=== PATIENT | female | born 1985 | race Caucasian/White ===

== ENCOUNTER 2016-11-28 04:52 | Inpatient (IN) | payer OTHER ==
[2016-11-28] MEDS ORDERED: OXYTOCIN 20 UNITS in RINGER'S SOLUTION,LACTATED 1,000 ML IV ONE (04:55)
[2016-11-28] MEDS ORDERED: ceFAZolin SODIUM/DEXTROSE,ISO 2 GM/50 ML BAG IV ONE (04:55)
[2016-11-28] MEDS ORDERED: RINGER'S SOLUTION,LACTATED 1,000 ML IV PRN (04:55)
[2016-11-28] MEDS: RINGER'S SOLUTION,LACTATED 1,000 ML IV PRN ×2 (06:22→10:05)
[2016-11-28] MEDS ORDERED: RINGER'S SOLUTION,LACTATED 1,000 ML IV ONE ×2 (07:50→09:25)
[2016-11-28] MEDS ORDERED: BISACODYL 10 MG SUPP.RECT RC PRN (09:29)
[2016-11-28] MEDS ORDERED: SENNOSIDES 8.6 MG TABLET PO PRN (09:29)
[2016-11-28] MEDS ORDERED: oxyCODONE HCL/ACETAMINOPHEN 1 TAB TABLET PO PRN (09:29)
[2016-11-28] MEDS ORDERED: ONDANSETRON HCL/PF 2 MG/ML VIAL IV PRN (09:29)
[2016-11-28] MEDS ORDERED: SIMETHICONE 80 MG TAB.CHEW PO PRN (09:29)
--- NOTE | 2016-11-28 09:36 | OR ---
Operative Report - Dictated Report Narrative: Operative report: 11/28/2016 Preoperative diagnosis: Prior , 39.0 weeks, status post right salpingectomy with and left salpingectomy of previous ectopic , desires permanent sterilization Postoperative diagnosis: Same Procedure: Repeat low-transverse section, left salpingectomy, cauterization of bilateral fallopian tube stumps on the uterus Surgeon: Kelly Palma D.O. Plant Worker: Or staff Anesthesia: Spinal IV fluids: 600 Milliliters Urine output: 50 Milliliters EBL: 200 Milliliters Findings: Normal appearing uterus, small omental adhesion to the peritoneum on the right side, remnant of the left fallopian tube, absent right fallopian tube , normal appearing ovaries, female infant in cephalic presentation, Apgars of 8 and 9, weight of 6 lbs. 5 oz. Drains: Mata catheter to gravity Pathology: Left fallopian tube Complications: None Condition: Stable The patient was taken to the operating room with IV fluids running and Mata catheter in place. She was placed in the dorsal supine position with a leftward tilt. She was prepped and draped in the normal sterile fashion. A Pfannenstiel skin incision was made with the scalpel approximately 2 cm above the pubic symphysis along the prior incision. The subcutaneous tissue was dissected down to the fascia. The fascia was incised in the midline and extended laterally. The superior aspect of the fascia was grasped with Elvia clamps and the rectus muscles were dissected off the fascia using Gates scissors and blunt dissection. In a similar fashion, the inferior aspect of the fascia was grasped and the rectus muscles dissected off. The peritoneum was then entered and extended with good visualization of the bowel and bladder. There was a small piece of omentum adherent to the peritoneal on the right anterior pelvis and this was cauterized and released. The uterine incision was made in a low-transverse fashion using the scalpel. It was extended laterally with the bandage scissors due to very thin lower uterine segment well applied to the anterior uterus. The was found to be cephalic. The infant was then delivered atraumatically. The cord was clamped and cut. The was handed off to the waiting framing mill operator helper. Cord blood was then collected. The placenta was then delivered spontaneously. The uterus was cleared of all clots and debris. Uterine incision was reapproximated using 0 Vicryl in a running fashion. A second layer of 0 Vicryl was used to imbricate the uterine incision. Hemostasis was obtained. Attention was then turned to the area of the fallopian tubes. There appeared to be a left fallopian tube that was somewhat intact and this was grasped with [place] clamps sequentially cauterize , and removed in its entirety. The fallopian tube stump was then cauterized on the corneal region of the uterus with the Kleppinger. The less then half a centimeter and this was cauterized with the Kleppinger as well. No further tubes were noted in the ovaries appeared normal as well as the round ligaments appeared normal. No evidence of any fimbria or her tubes remained. The peritoneum was then reapproximated using 3-0 Monocryl. The rectus muscles were inspected, cautery was used to obtain hemostasis. The fascia was then reapproximated with 0 Vicryl. The subcutaneous tissue was then irrigated. Bovie cautery was used to obtain hemostasis. The subcutaneous tissue was then reapproximated using 3-0 Monocryl. The skin was closed in a subcuticular fashion using 4-0 Monocryl. The incision was found to be hemostatic. Dermabond bandage was then placed. The patient tolerated the procedure well. Sponge, lap, needle, and instrument counts were correct throughout the entire procedure. The patient was taken to the recovery room in stable condition. History for MU Definition: * The number of deliveries resulting in a live the patient experienced prior to current hospitalization * The previous delivery of live twins or any live multiple gestation is considered one live event. *If primagravida or nulliparous is documented select zero for the number of previous live births. Live Events: 3
--- NOTE | 2016-11-28 09:47 | OR ---
Anesthesia Procedure Note - Anesthesia Procedure Note Date of Service: 11/28/16 Narrative: Vital Signs - Last Taken Temp 36.2 C L 11/28/16 09:25 Pulse 62 11/28/16 09:40 Resp 18 11/28/16 09:40 BP 107/56 11/28/16 09:40 Pulse Ox 99 11/28/16 09:40 O2 Oxygen Delivery Method Room Air 11/28/16 09:47 ANESTHESIA PROCEDURE NOTE Date of Procedure: 11/28/2026 Time of procedure: 9:30 AM. Performed by: BRITNI Cabral CRNA, MSN Janitor: Ragini Chavez RN. Preprocedure diagnosis: Post section pain. Post procedure diagnosis: Same. Procedure: Bilateral TAP block Indications: Post section pain relief. Findings: See below. Details of the procedure: The patient was brought to PACU and placed in the supine position. The patient was prepped with chlorhexidine and using ultrasound guidance the 3 abdominal muscular planes were identified and lidocaine 1% was infiltrated to the skin of the intended injection site. Under ultrasound guidance the the internal oblique and transverse this abdominis muscle layers were approached until the tip of the block needle rested in the plane between the muscles. 25 mL bupivacaine 0.5% with 1-200,000 epinephrine was injected and the procedure was repeated on the other side. Please see radiology/ultrasound report for details and images of the procedure. EBL: 0 Fluids: N/A. Specimen: N/A. Post procedure condition: The patient tolerated the procedure well. No complications were noted. Thank you for this consultation. Marc Emerson CRNA, ARNP, MSN
[2016-11-28] MEDS: KETOROLAC TROMETHAMINE 30 MG/ML VIAL IV PRN ×2 (11:33→19:30)
[2016-11-28] MEDS: oxyCODONE HCL/ACETAMINOPHEN 1 TAB TABLET PO PRN (16:06)
[2016-11-28] MEDS: ENOXAPARIN SODIUM 40 MG/0.4 ML SYRG SC SCH (16:08)
[2016-11-28] MEDS ORDERED: RHO(D) IMMUNE GLOBULIN 300 MCG DISP.SYRIN IM ONE (20:04)
[2016-11-28] MEDS: DOCUSATE SODIUM 100 MG CAPSULE PO SCH (21:43)
[2016-11-29] MEDS: oxyCODONE HCL/ACETAMINOPHEN 1 TAB TABLET PO PRN ×6 (01:26→20:55)
[2016-11-29] MEDS: DOCUSATE SODIUM 100 MG CAPSULE PO SCH ×2 (08:37→21:45)
--- NOTE | 2016-11-29 08:46 | PN ---
Progess Note - Interim Narrative: 11/29/16 08:43 Subjective: Patient is doing well, ambulating, voiding, tolerating by mouth. Minimal lochia. Pain controlled with medication. Objective: Vital signs stable General: no acute distress Abdomen: Soft, nondistended, diffusely tender, fundus firm Skin: Incision is clean, dry and intact, band was sticking to itself Extremities: Minimal edema, nontender Assessment and plan: Postoperative day 1 Feeding: Breast Pain: Controlled with by mouth medication control: Permanent May need to replace bandage if it continues to stick to itself Routine postoperative care.
[2016-11-29] MEDS: IBUPROFEN 800 MG TABLET PO PRN ×2 (14:28→20:54)
[2016-11-29] MEDS: ENOXAPARIN SODIUM 40 MG/0.4 ML SYRG SC SCH (14:29)
[2016-11-30] MEDS: IBUPROFEN 800 MG TABLET PO PRN ×2 (07:34→15:24)
[2016-11-30] MEDS: oxyCODONE HCL/ACETAMINOPHEN 1 TAB TABLET PO PRN ×2 (07:34→15:24)
[2016-11-30] MEDS: DOCUSATE SODIUM 100 MG CAPSULE PO SCH ×2 (07:34→15:23)
--- NOTE | 2016-11-30 10:34 | PN ---
Subjective - Date and Time Seen Date: 11/30/16 Subjective Narrative: POD#2, s/p repeat c/s with left salpingectomy and cauterization of bilateral tubal stumps. doing well. ambulating and tolerating diet. pain controlled. normal lochia. . voided. passed gas, but no BM. wants to go home today. Objective - Vitals Vitals: Last Vital Signs Temp 36.6 C 11/30/16 07:15 Pulse 65 11/30/16 07:15 Resp 18 11/30/16 07:15 BP 107/59 11/30/16 07:15 Pulse Ox 98 11/30/16 07:15 - Exam Constitutional: Present: Alert, Oriented x3, Cooperative Respiratory: Present: no respiratory distress Cardiovascular/Chest: Present: normal peripheral pulses Abdomen: Present: Normal bowel sounds, soft, nondistended, other - fundus firm and below umbilicus Extremity: Present: normal range of motion, no pedal edema, no calf tenderness Skin Exam: Present: normal color, warm/dry, no cyanosis Eye contact: Present: cooperative, good eye contact, normal speech Cauti Physician Documentation - Urinary Catheter Management Urethral (Mata) Date of Insertion: 11/28/16 Time of Insertion: 08:00 Date of Removal: 11/28/16 Time of Removal: 20:30 Assessment/Plan Plan Narrative: A: POD#2, s/p repeat c/s and sterilization. stable and well. Plan: routine post op care. ambulation encouraged. discharge home later today if remains well. Jose Lara MD
[2016-11-30 12:01] VITALS: BP 96/48
== END 2016-11-30 15:45 | disposition home or self-care (01) | DRG 766 ==
LOC: MS 04:52
PROVIDERS: ADMIT Obstetrics & Gynecology Gynecologic Oncology; ATTEND Obstetrics & Gynecology Gynecologic Oncology
PROC: 0UB60ZZ Excision of Left Fallopian Tube, Open Approach (ICD-10-PCS; 2016-11-28)
PROC: 4A1HXCZ Monitoring of Products of Conception, Cardiac Rate, External Approach (ICD-10-PCS; 2016-11-28)
PROC: 10D00Z1 Extraction of Products of Conception, Low, Open Approach (ICD-10-PCS; principal; 2016-11-28 08:00)
DX: O99.824 Streptococcus B carrier state complicating childbirth (principal); O99.334 Smoking (tobacco) complicating childbirth; F17.210 Nicotine dependence, cigarettes, uncomplicated; O34.211 Maternal care for low transverse scar from previous cesarean delivery; Z3A.40 40 weeks gestation of pregnancy; Z37.0 Single live birth; Z30.2 Encounter for sterilization; Z98.51 Tubal ligation status
CPT/HCPCS: 58611; 59025; 59510; 85460; 88302; J2790